=== PATIENT | female | born 1980 ===

== ENCOUNTER 2016-09-09 17:40 | Emergency (ER) | payer SELFPAY ==
[~2016-09-09] VITALS: Ht 162.6 cm; Wt 52.3 kg
[2016-09-09 18:20] VITALS: BP 103/63
== END 2016-09-09 21:35 | disposition left against medical advice (07) ==
LOC: EMS 17:54
DX: M54.2 Cervicalgia (principal); F12.90 Cannabis use, unspecified, uncomplicated; Z53.21 Procedure and treatment not carried out due to patient leaving prior to being seen by health care provider